=== PATIENT | male | born 1930 | race Caucasian/White ===

== ENCOUNTER → 2016-09-21 | Outpatient (CLI) | payer MEDICARE, BC ==
[~2016-09-21] MED LIST: AMOXICILLIN 8751 TAB; ASPIRIN 32325 MG/TAB PO; ASPIRIN 81M81 MG/TA2 PO; BETAPACE 80MG80 MG; CALCIUM 600600 MG PO; CELEXA 20MG20 MG/TAB PO; DOXYCYCLINE 10100 MG PO; ELIQUIS 5MG PO; ENBREL50 MG/ML SC; FOLIC ACID 11 MG/TA1 PO; LIPITOR20 MG PO; LOTENSIN HCT 201 TA1 PO; METHOTREXA2.5 MG/TAB; MULTIPLE VITAMI1 TA5 PO; NAPRELAN375 MG; NEXIUM 40MG40 MG PO; PRADAXA 150MG150 MG PO; PREDNISONE20 MG PO; RT SPIRIVA18 MCG IH; SINEMET 25/101 UDTAB PO; TESSALON P100 MG/CAP PO; TYLENOL 500MG500 MG
== END ==
LOC: COL.RAD 08:42
DX: M70.62 Trochanteric bursitis, left hip (principal)
CPT/HCPCS: J3301; Q9967

== ENCOUNTER 2016-12-28 08:30 | Outpatient (RCR) | payer MEDICARE, BC | END 2017-03-20 | disposition home or self-care (01) | LOC: WSST | DX: R13.10 Dysphagia, unspecified (principal); G20 Parkinson's disease | CPT/HCPCS: G8996-GN; G8997-GN ==

== ENCOUNTER → 2016-12-28 | Outpatient (CLI) | payer MEDICARE, BC | LOC: COL.RAD 08:30 | DX: R13.12 Dysphagia, oropharyngeal phase (principal) | CPT/HCPCS: G8996-GN; G8997-GN; G8998-GN ==

== ENCOUNTER 2017-08-01 13:33 | Emergency (ER) | payer MEDICARE, BC ==
[~2017-08-01] VITALS: Ht 188 cm; Wt 104.5 kg
[2017-08-01 17:06] LABS: COLLECTION METHOD CLEAN CATCH
[2017-08-01 17:14] LABS: MUCOUS Present /lpf; PH 5 (5-8); SQUAMOUS EPITHELIAL 0-2 /hpf; URINE APPEARANCE Clear; URINE BACTERIA Rare /hpf; URINE BILIRUBIN Negative (NEGATIVE); URINE BLOOD Negative (NEGATIVE); URINE COLOR Yellow; URINE GLUCOSE Negative (NEGATIVE); URINE KETONE Trace (NEGATIVE); URINE LEUKOCYTE ESTERASE Negative (NEGATIVE); URINE NITRATE Negative (NEGATIVE); URINE PROTEIN(semi-quant) Negative (NEGATIVE); URINE RBC 0-2 /hpf; URINE UROBILINOGEN Negative (NEGATIVE)
[2017-08-01 17:22] LABS: TRICYCLIC ANTIDEPRESS URINE NEGATIVE
[2017-08-01 17:29] LABS: BASO % 0.2 % (0.0-2.0); EOS # 0.1 (0.0-0.7); EOS % 0.8 % (0-4.0); GRAN # 4.8 (1.4-6.5); GRAN % 57.2 % (42.2-75.2); HEMOGLOBIN 12.9 g/dl (13.5-18.0); LYMPH # 2.5 (1.2-3.4); LYMPH % 29.6 % (20.0-51.0); MEAN CELL VOLUME 105 fl (80.0-100.0); MEAN CORPUSCULAR HEMOGLOBIN 35 pg (27.0-31.0); MEAN CORPUSCULAR HGB CONC 33 g/dl (33.0-37.0); MONO % 11.8 % (1.7-9.3); PLATELET COUNT 322 K/mm3 (130-400); REDCELL DISTRIBUTION WIDTH-CV 13.2 % (11.5-14.5)
[2017-08-01 17:45] LABS: ACETAMINOPHEN < 10 ug/mL (10-30); ALANINE AMINOTRANSFERASE 13 U/L (21-72); ALBUMIN 4.3 gm/dL (3.5-5.0); ALCOHOL(ethanol),MEDICAL < 10 mg/dL; ALKALINE PHOSPHATASE 56 U/L (50-136); ANION GAP 10 mmol/L (7-16); AST,SGOT 18 U/L (15-37); BLOOD UREA NITROGEN 23 mg/dL (9-20); CALCIUM 9.9 mg/dL (8.4-10.2); CARBON DIOXIDE 24 mmol/L (22-30); CHLORIDE 106 mmol/L (98-107); CREATININE, serum 1.25 mg/dL (0.66-1.25); GLUCOSE 103 mg/dL (74-106); POTASSIUM 4.8 mmol/L (3.4-5.0); SALICYLATE < 1.0 mg/dL; SODIUM 140 mmol/L (137-145); TOTAL PROTEIN 7.3 gm/dL (6.4-8.2)
[2017-08-02 00:54] VITALS: BP 117/56
[2017-08-02 02:23] VITALS: PULSE 68
== END 2017-08-02 02:24 ==
LOC: COL.ER 13:33
PROVIDERS: Emergency Medicine
DX: F32.9 Major depressive disorder, single episode, unspecified (principal); R45.851 Suicidal ideations; G20 Parkinson's disease

== ENCOUNTER 2017-08-24 08:09 | Day surgery (SDC) | payer MEDICARE, BC ==
[2017-08-24] VITALS (9 sets, daily range): BP systolic 106–179; BP diastolic 70–100; PULSE 59–75; TEMP 97.1–98
[~2017-08-24] VITALS: Ht 188.1 cm; Wt 113.1 kg
[2017-08-24] MEDS ORDERED: TYLENOL SU650 MG/SUP RC (08:46)
[2017-08-24] MEDS ORDERED: TYLENOL 500MG500 MG PO (08:47)
[2017-08-24] MEDS ORDERED: PROAIR HFA0.09 MG/AC IH (08:48)
[2017-08-24] MEDS ORDERED: ELIQUIS 5MG PO (08:48)
[2017-08-24] MEDS ORDERED: NATURAL C500 MG PO (08:49)
[2017-08-24] MEDS ORDERED: LIPITOR20 MG PO (08:50)
[2017-08-24] MEDS ORDERED: GENTLE LAXATIVE10 MG RC (08:51)
[2017-08-24] MEDS ORDERED: CIMZIA200 MG/ML IJ (08:53)
[2017-08-24] MEDS ORDERED: LEXAPRO20 MG PO (08:54)
[2017-08-24] MEDS ORDERED: FLEXERIL 1010 MG/TAB PO (08:54)
[2017-08-24] MEDS ORDERED: IMODIUM 2MG CAPS2 MG PO (08:55)
[2017-08-24] MEDS ORDERED: MILK OF MA400 MG/52 (08:56)
[2017-08-24] MEDS ORDERED: ZESTRIL 10MG10 MG PO (08:56)
[2017-08-24 08:58] LABS: MEAN CELL VOLUME 106 fl (80.0-100.0); MEAN CORPUSCULAR HGB CONC 33 g/dl (33.0-37.0); MEAN PLATELET VOLUME 9.4 fl (7.4-10.4); PLATELET COUNT 266 K/mm3 (130-400); RED BLOOD COUNT 3.09 M/mm3 (4.20-5.60); REDCELL DISTRIBUTION WIDTH-CV 13.9 % (11.5-14.5)
[2017-08-24] MEDS ORDERED: ALMACONE 360 M360 ML PO (08:58)
[2017-08-24] MEDS ORDERED: NITROSTAT0.4 MG/TAB SL (08:59)
[2017-08-24 09:00] LABS: HEMATOCRIT 32.6 % (42.0-52.0); HEMOGLOBIN 10.7 g/dl (13.5-18.0); MEAN CORPUSCULAR HEMOGLOBIN 35 pg (27.0-31.0)
[2017-08-24] MEDS ORDERED: TYLENOL 325MG325 MG PO (09:00)
[2017-08-24] MEDS ORDERED: BETAPACE 80MG80 MG PO (09:00)
[2017-08-24 09:03] LABS: PROTHROMBIN TIME 23.1 SECONDS (9.7-12.8)
[2017-08-24 09:10] LABS: CALCIUM 9.2 mg/dL (8.4-10.2); CREATININE, serum 1.04 mg/dL (0.66-1.25); POTASSIUM 3.6 mmol/L (3.4-5.0)
[2017-08-24] MEDS ORDERED: RT SPIRIVA18 MCG IH (09:16)
[2017-08-24] MEDS ORDERED: RAZADYNE8 MG PO (09:21)
[2017-08-24] MEDS ORDERED: BETAPACE 120MG120 MG PO (09:51)
== END 2017-08-24 11:03 | disposition home or self-care (01) ==
LOC: COL.CAR 08:09
PROVIDERS: Internal Medicine Cardiovascular Disease
DX: I48.0 Paroxysmal atrial fibrillation (principal); I48.91 Unspecified atrial fibrillation; Z95.0 Presence of cardiac pacemaker; Z79.01 Long term (current) use of anticoagulants; I11.0 Hypertensive heart disease with heart failure; I50.32 Chronic diastolic (congestive) heart failure; G45.1 Carotid artery syndrome (hemispheric); J44.9 Chronic obstructive pulmonary disease, unspecified; E78.5 Hyperlipidemia, unspecified; K21.9 Gastro-esophageal reflux disease without esophagitis; M06.9 Rheumatoid arthritis, unspecified; Z86.73 Personal history of transient ischemic attack (TIA), and cerebral infarction without residual deficits; M62.81 Muscle weakness (generalized); I25.10 Atherosclerotic heart disease of native coronary artery without angina pectoris; F32.9 Major depressive disorder, single episode, unspecified; G20 Parkinson's disease; I49.5 Sick sinus syndrome; Z80.9 Family history of malignant neoplasm, unspecified; Z82.3 Family history of stroke; Z87.891 Personal history of nicotine dependence
CPT/HCPCS: J2704; J7120

== ENCOUNTER 2017-08-25 02:04 | Emergency (ER) | payer MEDICARE, BC ==
[~2017-08-25] VITALS: Ht 188 cm; Wt 109.1 kg
[~2017-08-25 02:04] MED LIST changes: +ALMACONE 360 M360 ML PO; +BETAPACE 120MG120 MG PO; +BETAPACE 80MG80 MG PO; +CIMZIA200 MG/ML IJ; +FLEXERIL 1010 MG/TAB PO; +GENTLE LAXATIVE10 MG RC; +IMODIUM 2MG CAPS2 MG PO; +LEXAPRO20 MG PO; +MILK OF MA400 MG/52; +NATURAL C500 MG PO; +NITROSTAT0.4 MG/TAB SL; +PROAIR HFA0.09 MG/AC IH; +RAZADYNE8 MG PO; +TYLENOL 325MG325 MG PO; +TYLENOL 500MG500 MG PO; +TYLENOL SU650 MG/SUP RC; +ZESTRIL 10MG10 MG PO
[2017-08-25 02:09] VITALS: TEMP 98.2
[2017-08-25 02:35] LABS: MEAN CELL VOLUME 106 fl (80.0-100.0); MEAN CORPUSCULAR HGB CONC 32 g/dl (33.0-37.0); MEAN PLATELET VOLUME 11.1 fl (7.4-10.4); PLATELET COUNT 250 K/mm3 (130-400); RED BLOOD COUNT 3.28 M/mm3 (4.20-5.60)
[2017-08-25 02:37] LABS: HEMATOCRIT 34.9 % (42.0-52.0); HEMOGLOBIN 11.3 g/dl (13.5-18.0); MEAN CORPUSCULAR HEMOGLOBIN 34 pg (27.0-31.0)
[2017-08-25 02:48] LABS: ALBUMIN 3.9 gm/dL (3.5-5.0); BILIRUBIN,TOTAL 0.8 mg/dL (0.0-1.0); C-REACTIVE PROTEIN 4.8 mg/dL (0.0-0.9); CREATININE, serum 1.08 mg/dL (0.66-1.25); POTASSIUM 3.7 mmol/L (3.4-5.0); TOTAL PROTEIN 7.1 gm/dL (6.4-8.2)
[2017-08-25 02:53] LABS: BAND 6 % (0-10); EOSINOPHIL 1 % (0-4); LYMPHOCYTE 9 % (20.0-51.0); NEUTROPHILS 65 % (42.0-75.2); PLATELET ESTIMATE NORMAL (NORMAL)
[2017-08-25 02:58] LABS: TROPONIN-I 0.04 ng/mL (0.000-0.034)
[2017-08-25 05:00] VITALS: BP 159/101; PULSE 82
== END 2017-08-25 05:00 | disposition short-term general hospital (02) ==
LOC: COL.ER 02:04
PROVIDERS: Emergency Medicine
DX: I11.0 Hypertensive heart disease with heart failure (principal); I50.9 Heart failure, unspecified; I48.91 Unspecified atrial fibrillation; I25.10 Atherosclerotic heart disease of native coronary artery without angina pectoris; J44.9 Chronic obstructive pulmonary disease, unspecified; Z95.0 Presence of cardiac pacemaker; Z95.5 Presence of coronary angioplasty implant and graft; Z79.01 Long term (current) use of anticoagulants
CPT/HCPCS: J1940

== ENCOUNTER → 2017-09-04 | Outpatient (REF) ==
[2017-09-04 09:19] LABS: CALCIUM 8.7 mg/dL (8.4-10.2); CREATININE, serum 1.16 mg/dL (0.66-1.25)
== END ==
LOC: ZCOL.LAB 08:48
PROVIDERS: Internal Medicine
DX: E87.6 Hypokalemia (principal)

== ENCOUNTER 2017-11-09 09:49 | Day surgery (SDC) | payer MEDICARE, BC ==
[~2017-11-09] VITALS: Ht 188 cm; Wt 102.2 kg
[2017-11-09 10:30] VITALS: BP 114/69; PULSE 81; TEMP 97.7
[2017-11-09] MEDS ORDERED: TYLENOL SU650 MG/SUP RC (11:16)
[2017-11-09] MEDS ORDERED: ELIQUIS 5MG PO (11:17)
[2017-11-09] MEDS ORDERED: VITAMIN C500 MG PO (11:18)
[2017-11-09] MEDS ORDERED: LIPITOR20 MG PO (11:18)
[2017-11-09] MEDS ORDERED: DULCOLAX S10 MG/SUPP RC (11:19)
[2017-11-09] MEDS ORDERED: SINEMET-25/251 UDTAB PO ×4 (11:19→11:21)
[2017-11-09] MEDS ORDERED: FLEXERIL 1010 MG/TAB PO (11:22)
[2017-11-09] MEDS ORDERED: LEXAPRO 10MG10 MG PO (11:23)
[2017-11-09] MEDS ORDERED: FOLIC ACID 11 MG/TA1 PO (11:23)
[2017-11-09] MEDS ORDERED: LASIX 40MG TABL40 MG PO (11:24)
[2017-11-09] MEDS ORDERED: RAZADYNE8 MG PO (11:25)
[2017-11-09] MEDS ORDERED: IMODIUM A-D2 MG PO (11:26)
[2017-11-09] MEDS ORDERED: PRINIVIL40 MG PO (11:28)
[2017-11-09] MEDS ORDERED: METHOTREXA2.5 MG/TAB PO (11:31)
[2017-11-09] MEDS ORDERED: MULTIPLE VITAMI1 CAP PO (11:32)
[2017-11-09] MEDS ORDERED: MILK OF MA400 MG/52 PO (11:32)
[2017-11-09] MEDS ORDERED: ALMACONE 360 M360 ML PO (11:33)
[2017-11-09] MEDS ORDERED: NEXIUM 40MG40 MG PO (11:34)
[2017-11-09] MEDS ORDERED: NITROSTAT0.4 MG/TAB SL (11:35)
[2017-11-09] MEDS ORDERED: PRILOSEC 20MG20 MG PO (11:35)
[2017-11-09] MEDS ORDERED: ROLAIDS 675 MG-1 CT2 PO (11:37)
[2017-11-09] MEDS ORDERED: PROAIR HFA0.09 MG/AC IH (11:37)
[2017-11-09] MEDS ORDERED: BETAPACE 120MG120 MG PO (11:38)
[2017-11-09] MEDS ORDERED: ALDACTONE 25MG25 M1 PO (11:42)
[2017-11-09] MEDS ORDERED: RT SPIRIVA18 MCG IH (11:43)
[2017-11-09] MEDS ORDERED: TYLENOL 500MG500 MG PO (11:44)
[2017-11-09] MEDS ORDERED: TYLENOL 325MG325 MG PO (11:54)
[2017-11-09 12:55] VITALS: BP 85/56; PULSE 76
[2017-11-09 13:10] VITALS: BP 112/73; PULSE 76
[2017-11-09 13:25] VITALS: BP 121/76; PULSE 69
== END 2017-11-09 13:30 ==
LOC: SDCO 09:49
DX: K22.70 Barrett's esophagus without dysplasia (principal); K21.9 Gastro-esophageal reflux disease without esophagitis; K44.9 Diaphragmatic hernia without obstruction or gangrene; K22.2 Esophageal obstruction; J44.9 Chronic obstructive pulmonary disease, unspecified; I11.0 Hypertensive heart disease with heart failure; I50.32 Chronic diastolic (congestive) heart failure; I25.10 Atherosclerotic heart disease of native coronary artery without angina pectoris; G20 Parkinson's disease; I69.854 Hemiplegia and hemiparesis following other cerebrovascular disease affecting left non-dominant side; I69.892 Facial weakness following other cerebrovascular disease; I69.828 Other speech and language deficits following other cerebrovascular disease; I48.91 Unspecified atrial fibrillation; F32.9 Major depressive disorder, single episode, unspecified; F41.9 Anxiety disorder, unspecified; M19.90 Unspecified osteoarthritis, unspecified site; E78.00 Pure hypercholesterolemia, unspecified; D64.9 Anemia, unspecified; K57.92 Diverticulitis of intestine, part unspecified, without perforation or abscess without bleeding; Z95.0 Presence of cardiac pacemaker; Z79.82 Long term (current) use of aspirin; Z79.01 Long term (current) use of anticoagulants
CPT/HCPCS: J2704

== ENCOUNTER 2018-07-14 17:17 | Inpatient (IN) | payer MEDICARE, BC ==
[2018-07-14] VITALS (104 sets, daily range): BP systolic 133; BP diastolic 91; PULSE 74; TEMP 98.7; O2SAT 94–100
[~2018-07-14] VITALS: Ht 188 cm; Wt 108.6 kg
[~2018-07-14 17:17] MED LIST changes: +ALDACTONE 25MG25 M1 PO; +DULCOLAX S10 MG/SUPP RC; +IMODIUM A-D2 MG PO; +LASIX 40MG TABL40 MG PO; +LEXAPRO 10MG10 MG PO; +METHOTREXA2.5 MG/TAB PO; +MILK OF MA400 MG/52 PO; +MULTIPLE VITAMI1 CAP PO; +PRILOSEC 20MG20 MG PO; +PRINIVIL40 MG PO; +ROLAIDS 675 MG-1 CT2 PO; +SINEMET-25/251 UDTAB PO; +VITAMIN C500 MG PO
[2018-07-14 17:38] LABS: HEMOGLOBIN 11.6 g/dl (13.5-18.0); MEAN CELL VOLUME 104 fl (80.0-100.0); MEAN CORPUSCULAR HEMOGLOBIN 33 pg (27.0-31.0); MEAN CORPUSCULAR HGB CONC 32 g/dl (33.0-37.0); MEAN PLATELET VOLUME 9.7 fl (7.4-10.4); PLATELET COUNT 409 K/mm3 (130-400); REDCELL DISTRIBUTION WIDTH-CV 13.5 % (11.5-14.5)
[2018-07-14 17:39] LABS: HEMATOCRIT 36.3 % (42.0-52.0)
[2018-07-14 17:43] LABS: INR 1.7 (0.8-3.0); PROTHROMBIN TIME 18.8 SECONDS (9.7-12.8)
[2018-07-14 17:46] LABS: PARTIAL THROMBOPLASTIN TIME 35.5 SECONDS (26.0-37.0)
[2018-07-14 17:49] LABS: ALBUMIN 4.3 gm/dL (3.5-5.0); BILIRUBIN,TOTAL 0.5 mg/dL (0.0-1.0); CALCIUM 9.3 mg/dL (8.4-10.2); CREATININE, serum 1.71 mg/dL (0.66-1.25); POTASSIUM 4.3 mmol/L (3.4-5.0); TOTAL PROTEIN 8.2 gm/dL (6.4-8.2)
[2018-07-14 18:00] LABS: TROPONIN-I 0.014 ng/mL (0.000-0.034)
[2018-07-14 20:31] LABS: BAND 4 % (0-10); BASOPHIL 1 % (0-2); LYMPHOCYTE 14 % (20.0-51.0); NEUTROPHILS 69 % (42.0-75.2); PLATELET ESTIMATE INCREASED (NORMAL)
[2018-07-14 21:10] LABS: COLLECTION METHOD CLEAN CATCH
[2018-07-14 21:16] LABS: PH 5 (5-8); SQUAMOUS EPITHELIAL 0-2 /hpf; URINE APPEARANCE Clear; URINE BACTERIA None Seen /hpf; URINE BILIRUBIN Negative (NEGATIVE); URINE BLOOD Negative (NEGATIVE); URINE COLOR Yellow; URINE GLUCOSE Negative (NEGATIVE); URINE KETONE Trace (NEGATIVE); URINE LEUKOCYTE ESTERASE Negative (NEGATIVE); URINE NITRATE Negative (NEGATIVE); URINE PROTEIN(semi-quant) Negative (NEGATIVE); URINE RBC 0-2 /hpf; URINE UROBILINOGEN Negative (NEGATIVE)
[2018-07-15] VITALS (461 sets, daily range): BP systolic 120–144; BP diastolic 64–85; PULSE 69–77; TEMP 97.6–98.6; O2SAT 92–100
[2018-07-15 04:13] LABS: HEMOGLOBIN 10.3 g/dl (13.5-18.0); MEAN CELL VOLUME 102 fl (80.0-100.0); MEAN CORPUSCULAR HEMOGLOBIN 33 pg (27.0-31.0); MEAN CORPUSCULAR HGB CONC 32 g/dl (33.0-37.0); MEAN PLATELET VOLUME 9.4 fl (7.4-10.4); PLATELET COUNT 380 K/mm3 (130-400); RED BLOOD COUNT 3.11 M/mm3 (4.20-5.60); REDCELL DISTRIBUTION WIDTH-CV 13.6 % (11.5-14.5)
[2018-07-15 04:16] LABS: HEMATOCRIT 31.8 % (42.0-52.0)
[2018-07-15 04:23] LABS: CALCIUM 8.7 mg/dL (8.4-10.2); CREATININE, serum 1.48 mg/dL (0.66-1.25); MAGNESIUM 1.1 mg/dL (1.6-2.3); POTASSIUM 4.5 mmol/L (3.4-5.0)
[2018-07-15 04:34] LABS: BAND 1 % (0-10); BASOPHIL 1 % (0-2); LYMPHOCYTE 11 % (20.0-51.0); NEUTROPHILS 74 % (42.0-75.2)
[2018-07-15 04:35] LABS: HYPOCHROMIA 1+; PLATELET ESTIMATE NORMAL (NORMAL)
[2018-07-15 04:36] LABS: TROPONIN-I 0.022 ng/mL (0.000-0.034)
[2018-07-15 04:37] LABS: SCHISTOCYTES 1+
[2018-07-15 04:53] LABS: TSH w REFLEX 1.56 uIU/mL (0.465-4.680)
== END 2018-07-15 13:54 | DRG 303 ==
LOC: COL.ER 17:17 → ICU 18:58
PROVIDERS: Family Medicine; Internal Medicine
DX: I25.110 Atherosclerotic heart disease of native coronary artery with unstable angina pectoris (principal); N17.9 Acute kidney failure, unspecified; I13.0 Hypertensive heart and chronic kidney disease with heart failure and stage 1 through stage 4 chronic kidney disease, or unspecified chronic kidney disease; I50.32 Chronic diastolic (congestive) heart failure; Z66 Do not resuscitate; N18.9 Chronic kidney disease, unspecified; I25.10 Atherosclerotic heart disease of native coronary artery without angina pectoris; I48.91 Unspecified atrial fibrillation; J44.9 Chronic obstructive pulmonary disease, unspecified; Z95.5 Presence of coronary angioplasty implant and graft; Z95.0 Presence of cardiac pacemaker; Z79.01 Long term (current) use of anticoagulants; M06.9 Rheumatoid arthritis, unspecified; Z87.891 Personal history of nicotine dependence
CPT/HCPCS: 99223-AI; 99239; J3475; J7030

== ENCOUNTER 2018-07-17 03:58 | Emergency (ER) | payer MEDICARE, BC ==
[~2018-07-17] VITALS: Ht 188 cm; Wt 109.1 kg
[2018-07-17 03:59] VITALS: TEMP 97
[2018-07-17 04:42] LABS: MEAN CELL VOLUME 103 fl (80.0-100.0); MEAN CORPUSCULAR HEMOGLOBIN 33 pg (27.0-31.0); MEAN CORPUSCULAR HGB CONC 33 g/dl (33.0-37.0); PLATELET COUNT 352 K/mm3 (130-400); RED BLOOD COUNT 2.99 M/mm3 (4.20-5.60); REDCELL DISTRIBUTION WIDTH-CV 13.7 % (11.5-14.5)
[2018-07-17 04:49] LABS: INR 1.8 (0.8-3.0); PROTHROMBIN TIME 20.2 SECONDS (9.7-12.8)
[2018-07-17 04:54] LABS: ALBUMIN 3.8 gm/dL (3.5-5.0); BILIRUBIN,TOTAL 0.4 mg/dL (0.0-1.0); CALCIUM 9.2 mg/dL (8.4-10.2); CREATININE, serum 1.41 mg/dL (0.66-1.25); POTASSIUM 4.6 mmol/L (3.4-5.0); TOTAL PROTEIN 7.3 gm/dL (6.4-8.2)
[2018-07-17 05:03] LABS: TROPONIN-I 0.021 ng/mL (0.000-0.034)
[2018-07-17 05:05] LABS: HEMATOCRIT 30.8 % (42.0-52.0)
[2018-07-17 06:00] VITALS: BP 147/85; PULSE 71
[2018-07-17 06:17] LABS: BAND 2 % (0-10); EOSINOPHIL 2 % (0-4); LYMPHOCYTE 10 % (20.0-51.0); NEUTROPHILS 76 % (42.0-75.2); PLATELET ESTIMATE NORMAL (NORMAL)
== END 2018-07-17 06:03 | disposition home or self-care (01) ==
LOC: COL.ER 03:58
PROVIDERS: Emergency Medicine
DX: J44.1 Chronic obstructive pulmonary disease with (acute) exacerbation (principal); I48.91 Unspecified atrial fibrillation; N18.9 Chronic kidney disease, unspecified; M06.9 Rheumatoid arthritis, unspecified; F41.9 Anxiety disorder, unspecified; G20 Parkinson's disease; Z79.899 Other long term (current) drug therapy; Z95.0 Presence of cardiac pacemaker; Z95.5 Presence of coronary angioplasty implant and graft
CPT/HCPCS: J2270

== ENCOUNTER → 2018-07-25 | Outpatient (CLI) | payer MEDICARE, BC ==
[2018-07-25 12:21] LABS: CALCIUM 8.8 mg/dL (8.4-10.2); CREATININE, serum 1.3 mg/dL (0.66-1.25); POTASSIUM 4.5 mmol/L (3.4-5.0)
[2018-07-25 12:22] LABS: BASO % 0.3 % (0.0-2.0); EOS # 0.1 (0.0-0.7); EOS % 0.7 % (0-4.0); GRAN # 9.4 (1.4-6.5); GRAN % 77.4 % (42.2-75.2); HEMOGLOBIN 10.8 g/dl (13.5-18.0); LYMPH # 1.4 (1.2-3.4); LYMPH % 11.7 % (20.0-51.0); MEAN CELL VOLUME 104 fl (80.0-100.0); MEAN CORPUSCULAR HEMOGLOBIN 33 pg (27.0-31.0); MEAN CORPUSCULAR HGB CONC 31 g/dl (33.0-37.0); MEAN PLATELET VOLUME 9.8 fl (7.4-10.4); MONO # 1.1 (0.1-0.6); MONO % 9.2 % (1.7-9.3); PLATELET COUNT 424 K/mm3 (130-400); RED BLOOD COUNT 3.32 M/mm3 (4.20-5.60); REDCELL DISTRIBUTION WIDTH-CV 13.9 % (11.5-14.5)
[2018-07-25 12:28] LABS: HEMATOCRIT 34.6 % (42.0-52.0)
== END ==
LOC: ZCOL.LAB 11:40
PROVIDERS: Internal Medicine
DX: J96.00 Acute respiratory failure, unspecified whether with hypoxia or hypercapnia (principal)

== ENCOUNTER → 2020-03-26 | Outpatient (CLI) | payer MEDICARE, BC ==
[~2020-03-26] MED LIST changes: +BETAPACEAF120 PO; +LASIX 20MG TABL20 MG PO; +PERIDEX (CHLOR480 ML MM; +ZOFRAN 4MG T4 MG/TAB PO
[2020-03-26 19:41] LABS: BASO % 0.4 % (0.0-2.0); EOS # 0.1 (0.0-0.7); EOS % 1.3 % (0-4.0); GRAN # 5.7 (1.4-6.5); GRAN % 68.4 % (42.2-75.2); HEMOGLOBIN 11.3 g/dl (13.5-18.0); LYMPH # 1.6 (1.2-3.4); LYMPH % 19.5 % (20.0-51.0); MEAN CELL VOLUME 105 fl (80.0-100.0); MEAN CORPUSCULAR HEMOGLOBIN 34 pg (27.0-31.0); MEAN CORPUSCULAR HGB CONC 32 g/dl (33.0-37.0); MEAN PLATELET VOLUME 10.2 fl (7.4-10.4); MONO # 0.9 (0.1-0.6); MONO % 10.2 % (1.7-9.3); PLATELET COUNT 245 K/mm3 (130-400); RED BLOOD COUNT 3.37 M/mm3 (4.20-5.60); REDCELL DISTRIBUTION WIDTH-CV 13.9 % (11.5-14.5)
[2020-03-26 19:47] LABS: ALBUMIN 3.5 gm/dL (3.5-5.0); BILIRUBIN,TOTAL 0.7 mg/dL (0.0-1.0); CALCIUM 8.4 mg/dL (8.4-10.2); CREATININE, serum 1.2 (0.66-1.25); POTASSIUM 3.6 mmol/L (3.4-5.0); TOTAL PROTEIN 6.2 gm/dL (6.4-8.2)
[2020-03-26 19:50] LABS: HEMATOCRIT 35.3 % (42.0-52.0)
== END ==
LOC: ZCOL.LAB 19:13
PROVIDERS: Nurse Practitioner Family
DX: I50.32 Chronic diastolic (congestive) heart failure (principal); Z20.828 Contact with and (suspected) exposure to other viral communicable diseases

== ENCOUNTER 2020-04-08 08:47 | Day surgery (SDC) | payer MEDICARE, BC ==
[~2020-04-08] VITALS: Ht 188 cm; Wt 117.0 kg
[2020-04-08 09:19] VITALS: BP 157/92; PULSE 75; TEMP 97.9
[2020-04-08] MEDS ORDERED: CIMZIA200 MG/ML SQ (09:43)
[2020-04-08] MEDS ORDERED: ROLAIDS 675 MG-1 CT2 PO (09:44)
[2020-04-08] MEDS ORDERED: ASPERCREME85G TP (09:46)
[2020-04-08 09:50] LABS: HEMATOCRIT 40.2 % (42.0-52.0); MEAN CELL VOLUME 105 fl (80.0-100.0); MEAN CORPUSCULAR HEMOGLOBIN 34 pg (27.0-31.0); MEAN CORPUSCULAR HGB CONC 32 g/dl (33.0-37.0); MEAN PLATELET VOLUME 9.8 fl (7.4-10.4); PLATELET COUNT 298 K/mm3 (130-400); RED BLOOD COUNT 3.84 M/mm3 (4.20-5.60); REDCELL DISTRIBUTION WIDTH-CV 13.6 % (11.5-14.5)
[2020-04-08 09:56] LABS: INR 1.3 (0.8-3.0); PROTHROMBIN TIME 14.3 SECONDS (9.7-12.8)
[2020-04-08] MEDS ORDERED: SINEMET-25/251 UDTAB PO (09:57)
[2020-04-08 09:58] LABS: PARTIAL THROMBOPLASTIN TIME 35.1 SECONDS (26.0-37.0)
[2020-04-08] MEDS ORDERED: ATHLETE'S FOOT1% TP (09:58)
[2020-04-08] MEDS ORDERED: RAZADYNE ER16 MG PO (10:00)
[2020-04-08] MEDS ORDERED: LASIX 40MG TABL40 MG PO (10:00)
[2020-04-08 10:10] LABS: CREATININE, serum 1.36 (0.66-1.25); MAGNESIUM 1.2 mg/dL (1.6-2.3); POTASSIUM 4.3 mmol/L (3.4-5.0)
[2020-04-08] MEDS ORDERED: ATROVENT I0.2 MG/1 M IH (10:10)
[2020-04-08] MEDS ORDERED: ALMACONE 360 M360 ML PO (10:12)
[2020-04-08] MEDS ORDERED: NYSTATIN POWDER30 GM TOP (10:18)
[2020-04-08] MEDS ORDERED: PERIDEX (CHLOR480 ML MM (10:19)
[2020-04-08] MEDS ORDERED: K-DUR20 MEQ PO (10:20)
[2020-04-08] MEDS ORDERED: PRILOSEC 20MG20 MG PO (10:21)
[2020-04-08] MEDS ORDERED: PROAIR HFA0.09 MG/AC IH (10:22)
[2020-04-08] MEDS ORDERED: BETAPACE 80MG80 MG PO (10:23)
[2020-04-08] MEDS ORDERED: ZOFRAN ODT4 MG PO (10:25)
[2020-04-08 10:40] LABS: THYROID STIMULATING HORMONE 3.35 uIU/mL (0.465-4.680)
--- NOTE | 2020-04-08 13:24 | NUR ---
Pt escorted out to waiting room to wait with son for [facility] van, who should be arriving within 10 mins. DC instructions were reviewed with pt and son. Both express understanding. Nurse Scott at [facility] was updated that pt would be returning to their facility and that cardioversion was not required today.
== END 2020-04-08 13:26 ==
LOC: COL.CAR 08:47
PROVIDERS: Internal Medicine Cardiovascular Disease
DX: I48.92 Unspecified atrial flutter (principal); I48.91 Unspecified atrial fibrillation; I11.0 Hypertensive heart disease with heart failure; I50.9 Heart failure, unspecified; I25.10 Atherosclerotic heart disease of native coronary artery without angina pectoris; J44.9 Chronic obstructive pulmonary disease, unspecified; K21.9 Gastro-esophageal reflux disease without esophagitis; E78.5 Hyperlipidemia, unspecified; G20 Parkinson's disease; M06.9 Rheumatoid arthritis, unspecified; I49.5 Sick sinus syndrome; Z95.0 Presence of cardiac pacemaker; Z98.61 Coronary angioplasty status

== ENCOUNTER 2021-03-23 14:57 | Inpatient (IN) | payer MEDICARE, BC ==
[~2021-03-23] VITALS: Ht 188 cm; Wt 112.0 kg
[~2021-03-23 14:57] MED LIST changes: +ASPERCREME85G TP; +ATHLETE'S FOOT1% TP; +ATROVENT I0.2 MG/1 M IH; +CIMZIA200 MG/ML SQ; +K-DUR20 MEQ PO; +NYSTATIN POWDER30 GM TOP; +RAZADYNE ER16 MG PO; +ZOFRAN ODT4 MG PO
[2021-03-23 15:31] LABS: HEMATOCRIT 40.4 % (42.0-52.0); HEMOGLOBIN 13.3 g/dl (13.5-18.0); MEAN CELL VOLUME 105 fl (80.0-100.0); MEAN CORPUSCULAR HEMOGLOBIN 35 pg (27.0-31.0); MEAN CORPUSCULAR HGB CONC 33 g/dl (33.0-37.0); MEAN PLATELET VOLUME 9.7 fl (7.4-10.4); PLATELET COUNT 322 K/mm3 (130-400); RED BLOOD COUNT 3.85 M/mm3 (4.20-5.60)
[2021-03-23 15:34] LABS: ALBUMIN 4.4 gm/dL (3.5-5.0); BILIRUBIN,TOTAL 0.7 mg/dL (0.0-1.0); CREATININE, serum 1.42 (0.66-1.25); POTASSIUM 4.6 mmol/L (3.4-5.0); TOTAL PROTEIN 8.7 gm/dL (6.4-8.2)
[2021-03-23 15:34] LABS: COLLECTION METHOD IN
[2021-03-23 15:46] LABS: TROPONIN-I 0.02 ng/mL (0.000-0.035)
[2021-03-23 15:54] LABS: MUCOUS Present /lpf; PH 5 (5-8); SQUAMOUS EPITHELIAL 0-2 /hpf; URINE APPEARANCE Clear; URINE BACTERIA None Seen /hpf; URINE BILIRUBIN Negative (NEGATIVE); URINE BLOOD Negative (NEGATIVE); URINE COLOR Yellow; URINE GLUCOSE Negative (NEGATIVE); URINE KETONE Trace (NEGATIVE); URINE LEUKOCYTE ESTERASE Negative (NEGATIVE); URINE NITRATE Negative (NEGATIVE); URINE PROTEIN(semi-quant) 1+ (NEGATIVE); URINE UROBILINOGEN Negative (NEGATIVE)
[2021-03-23 15:58] LABS: INR 1.7 (0.8-3.0)
[2021-03-23 16:01] LABS: PARTIAL THROMBOPLASTIN TIME 32.3 SECONDS (26.0-37.0)
[2021-03-23 16:50] LABS: BAND 1 % (0-10)
[2021-03-23 17:04] LABS: LYMPHOCYTE 18 % (20.0-51.0); NEUTROPHILS 75 % (42.0-75.2)
[2021-03-23 17:05] LABS: PLATELET ESTIMATE DECREASED (NORMAL)
[2021-03-23 17:06] LABS: OVALOCYTES 1+; SCHISTOCYTES 1+; SPHEROCYTE 1+
--- NOTE | 2021-03-23 22:50 | NUR ---
Patient to medical room 318 at this time. Patient is alert, slightly drowsy and partially oriented. He is mostly confused. He complains of pain in abdomen; bowel sounds audible in all quadrants, but are hypoactive in LLQ. Indwelling mayfield is in place and draining well. Redness is noted on coccyx and is blanchable. Excoriated skin is noted in skin folds around groin and Desenex pwder is applied. Patient has occassional cough with PO intake; PO meds administered crushed with apple sauce. Patient on 4 liters 02 and all lung clay have audible coarse crackles. No increased work of breathing is noted. Patient is poor historian so admission paperwork is filled out via physician's h&p. call light in reach, will continue to monitor.
[2021-03-23 22:59] LABS: MAGNESIUM 1.2 mg/dL (1.6-2.3); POTASSIUM 4.5 mmol/L (3.4-5.0)
[2021-03-23 23:00] VITALS: BP 149/76; PULSE 85; TEMP 98.3
[2021-03-23] MEDS ORDERED: IPRATROPIUM BROM3 M1 IH (23:06)
[2021-03-23] MEDS ORDERED: BETAPACE 120MG120 MG PO (23:22)
[2021-03-23] MEDS ORDERED: AMOXICILLIN 8751 TAB PO (23:31)
[2021-03-23] MEDS ORDERED: MYLANTA 150 ML150 M1 PO (23:32)
--- NOTE | 2021-03-24 01:30 | NUR ---
Vancomycin Initial Dosing Pharmacy Note Ordering provider: Saran Jimenez MD Indication/duration: PNA w/ hx of MRSA Relevant comorbidities: HTN, HFpEF, CKD LABS: WBC = 14.0, SCr = 1.42 Recommendation: Will draw troughs and follow levels. Loading dose: 1.75 grams Maintenance dose: 1.5 grams every 24 hours Trough goal: 15-20 ug/mL
[2021-03-24 04:26] VITALS: BP 128/74; PULSE 101; TEMP 98.3
[2021-03-24 06:19] LABS: BASO % 0.2 % (0.0-2.0); GRAN # 12.8 (1.4-6.5); GRAN % 86.3 % (42.2-75.2); HEMATOCRIT 38.2 % (42.0-52.0); HEMOGLOBIN 12.4 g/dl (13.5-18.0); LYMPH # 1.2 (1.2-3.4); MEAN CELL VOLUME 105 fl (80.0-100.0); MEAN CORPUSCULAR HEMOGLOBIN 34 pg (27.0-31.0); MEAN CORPUSCULAR HGB CONC 33 g/dl (33.0-37.0); MEAN PLATELET VOLUME 10.1 fl (7.4-10.4); MONO # 0.7 (0.1-0.6); MONO % 4.8 % (1.7-9.3); PLATELET COUNT 285 K/mm3 (130-400); RED BLOOD COUNT 3.63 M/mm3 (4.20-5.60)
[2021-03-24 08:06] VITALS: BP 129/77; PULSE 81; TEMP 98.1
[2021-03-24 08:21] LABS: PATHOLOGY DIFF REVIEW OK
[2021-03-24 13:00] VITALS: BP 133/75; PULSE 102; TEMP 97.8
[2021-03-24 16:55] VITALS: BP 123/67; PULSE 80; TEMP 98.2
[2021-03-25] VITALS: BP 109/70; PULSE 82; TEMP 98.2
[2021-03-25 04:00] VITALS: BP 116/82; PULSE 54; TEMP 98.6
[2021-03-25 07:51] VITALS: BP 137/88; PULSE 81; TEMP 97.9
[2021-03-25 07:51] LABS: CREATININE, serum 1.52 (0.66-1.25); MAGNESIUM 2.1 mg/dL (1.6-2.3); POTASSIUM 4.4 mmol/L (3.4-5.0)
[2021-03-25 08:14] LABS: HEMOGLOBIN 11.3 g/dl (13.5-18.0); MEAN CELL VOLUME 108 fl (80.0-100.0); MEAN CORPUSCULAR HEMOGLOBIN 34 pg (27.0-31.0); MEAN CORPUSCULAR HGB CONC 32 g/dl (33.0-37.0); MEAN PLATELET VOLUME 10.4 fl (7.4-10.4); PLATELET COUNT 329 K/mm3 (130-400); RED BLOOD COUNT 3.32 M/mm3 (4.20-5.60); REDCELL DISTRIBUTION WIDTH-CV 14.1 % (11.5-14.5)
[2021-03-25 08:36] LABS: HEMATOCRIT 35.9 % (42.0-52.0)
[2021-03-25 09:31] LABS: LYMPHOCYTE 10 % (20.0-51.0); NEUTROPHILS 85 % (42.0-75.2); PLATELET ESTIMATE NORMAL (NORMAL)
[2021-03-25 09:32] LABS: SPHEROCYTE 1+
[2021-03-25 09:34] LABS: ANISOCYTOSIS 1+
[2021-03-25 12:15] VITALS: BP 132/72; PULSE 84; TEMP 98.2
--- NOTE | 2021-03-25 12:49 | NUR ---
IVY confirmed with Ignacia at [facility] that the patient resides at [facility] in long-term care in [facility]. IVY contacted the patient's son, Ravinder (ph#[phone]), to discuss discharge plan. Ravinder confirms that the plan is for the patient to return back to [facility] upon discharge. The patient's PCP is Dr. Abundio Tavera and his DPOA-HC is in EMR. It designate Ravinder, his late (Dory), and his two daughters: Nimisha Rivas and Abbi Woods. IVY faxed updates to Ignacia at [facility]. IVY to continue to follow. *Discharge plan: [facility] long-term care/SNF*
[2021-03-25 16:13] VITALS: BP 150/87; PULSE 83; TEMP 98.4
[2021-03-25 20:00] VITALS: BP 135/87; PULSE 83; TEMP 98.1
[2021-03-26 04:18] VITALS: BP 127/86; PULSE 108; TEMP 98.8
[2021-03-26 07:21] VITALS: BP 150/93; PULSE 82; TEMP 97.9
[2021-03-26 11:35] VITALS: BP 150/87; PULSE 84; TEMP 98.4
[2021-03-26 17:22] VITALS: BP 144/83; PULSE 82; TEMP 97.9
[2021-03-26 19:22] VITALS: BP 128/88; PULSE 86; TEMP 97.6
--- NOTE | 2021-03-26 19:45 | NUR ---
Assessment complete. Patient is awake and hollers out, wanting to "go back to his room at [facility]". Patiet is reoriented and comfort measures are provided. Patient has no complaints of pain. Llanos catheter still in place, HR normal/regular and lungs have expiratory wheezes throughout. He wears 2 liters 02 with no signs of increased WOB. No edema is noted. Patient takes medications whole with regular water; no signs of swallowing problems noted. Bed alarm set and call light in reach. Will continue to monitor.
[2021-03-27] VITALS: BP 133/84; PULSE 88; TEMP 97.8
[2021-03-27 07:35] LABS: BASO % 0.1 % (0.0-2.0); EOS # 0.3 (0.0-0.7); GRAN # 7.9 (1.4-6.5); GRAN % 70.7 % (42.2-75.2); HEMOGLOBIN 11.7 g/dl (13.5-18.0); LYMPH # 1.6 (1.2-3.4); LYMPH % 13.9 % (20.0-51.0); MEAN CELL VOLUME 108 fl (80.0-100.0); MEAN CORPUSCULAR HEMOGLOBIN 35 pg (27.0-31.0); MEAN CORPUSCULAR HGB CONC 33 g/dl (33.0-37.0); MEAN PLATELET VOLUME 9.5 fl (7.4-10.4); MONO # 1.3 (0.1-0.6); MONO % 11.5 % (1.7-9.3); PLATELET COUNT 359 K/mm3 (130-400); RED BLOOD COUNT 3.35 M/mm3 (4.20-5.60)
[2021-03-27 07:48] LABS: CREATININE, serum 1.61 (0.66-1.25); MAGNESIUM 2.7 mg/dL (1.6-2.3); POTASSIUM 4.6 mmol/L (3.4-5.0)
[2021-03-27 08:24] VITALS: BP 136/87; PULSE 86; TEMP 97.8
--- NOTE | 2021-03-27 11:39 | NUR ---
Assessment completed, alert/disoriented but cooperative and follows commands, vital signs stable, denies pain or discomfort, lungs are CTA/ diminished, no cough or sputum production, no resp.difficulty noted at rest, is planning on discharging back to [facility] nursing facility to[place], I have spoke with son on the phone and updated on plan of care
[2021-03-27 11:58] VITALS: BP 130/78; PULSE 52; TEMP 97.8
[2021-03-27 16:23] VITALS: BP 123/72; PULSE 107; TEMP 98
[2021-03-27 20:20] VITALS: BP 120/74; PULSE 86; TEMP 98.2
--- NOTE | 2021-03-27 21:00 | NUR ---
Patient assessed around 2019. Alert and oriented to self. Reorients easily to place, time, and situation, but very forgetful. Denies having pain and discomfort. Peripheral INT to left wrist. Denies SOB and dyspnea. LS CTA in upper lobes, diminished in lower. On room air at this time. Respirations even and unlabored. HRI. Telemetry in place. Capillary refill less than 3 seconds. Non-tenting skin turgor. BSAx4. Abdomen soft and non-tender. Indwelling mayfield catheter patent, and draining yellow urine with sediment present via dependent drainage. Redness to bottom, blanchable. Repositioned. Voices no questions, needs, or concerns at this time. Resting in bed with call light within reach. High fall risk precautions in place.
[2021-03-27 23:30] VITALS: BP 110/80; PULSE 55; TEMP 98.2
[2021-03-28 03:36] VITALS: BP 116/76; PULSE 62; TEMP 98.1
--- NOTE | 2021-03-28 05:45 | NUR ---
Patient has been resting in bed with call light within reach. Repositioned in bed. Continues to have confusion, easily redirected, but very forgetful. On room air. Covid swab obtained and taken to lab.
[2021-03-28 09:36] VITALS: BP 112/70; BP 116/66; PULSE 58; PULSE 62; TEMP 97.8
[2021-03-28] MEDS ORDERED: IPRATROPIUM BROM3 M1 IH (09:43)
[2021-03-28] MEDS ORDERED: MEDROL 4MG DOSPA4 MG PO (09:45)
--- NOTE | 2021-03-28 09:52 | NUR ---
9 AM Sylvia called [facility] to confirm d/c. Sylvia faxed over updates. 9:50 am Sylvia faxed over D/c order to [facility] + covid test. D/c on 03/28.
[2021-03-28] MEDS ORDERED: OMNICEF 300MG300 MG PO (13:18)
== END 2021-03-28 11:15 | DRG 871 ==
LOC: COL.ER 14:57 → MEDICAL 18:19
PROVIDERS: Family Medicine; Nurse Practitioner Family; ADMIT Internal Medicine
DX: A41.9 Sepsis, unspecified organism (principal); J18.9 Pneumonia, unspecified organism; J96.01 Acute respiratory failure with hypoxia; I50.23 Acute on chronic systolic (congestive) heart failure; J44.0 Chronic obstructive pulmonary disease with (acute) lower respiratory infection; J44.1 Chronic obstructive pulmonary disease with (acute) exacerbation; I31.3 Pericardial effusion (noninflammatory); I13.0 Hypertensive heart and chronic kidney disease with heart failure and stage 1 through stage 4 chronic kidney disease, or unspecified chronic kidney disease; E78.5 Hyperlipidemia, unspecified; I25.10 Atherosclerotic heart disease of native coronary artery without angina pectoris; I48.0 Paroxysmal atrial fibrillation; I49.5 Sick sinus syndrome; I27.20 Pulmonary hypertension, unspecified; R07.89 Other chest pain; E83.42 Hypomagnesemia; N18.30 Chronic kidney disease, stage 3 unspecified; F41.9 Anxiety disorder, unspecified; F32.9 Major depressive disorder, single episode, unspecified; R53.81 Other malaise; Z20.822 Contact with and (suspected) exposure to COVID-19; G20 Parkinson's disease; F02.80 Dementia in other diseases classified elsewhere, unspecified severity, without behavioral disturbance, psychotic disturbance, mood disturbance, and anxiety; K21.9 Gastro-esophageal reflux disease without esophagitis; Z95.0 Presence of cardiac pacemaker; Z86.14 Personal history of Methicillin resistant Staphylococcus aureus infection
CPT/HCPCS: 99223-AI; 99232-AI; 99233-AI; 99239; A4314; J0456; J0692; J0696; J1940; J2270; J2920; J2930; J3370; J3475; J7040; J7050; J7512; Q9967

== ENCOUNTER → 2022-01-12 | Outpatient (CLI) | payer MEDICARE, BC ==
[~2022-01-12] MED LIST changes: +AMOXICILLIN 8751 TAB PO; +IPRATROPIUM BROM3 M1 IH; +MEDROL 4MG DOSPA4 MG PO; +MYLANTA 150 ML150 M1 PO; +OMNICEF 300MG300 MG PO
== END ==
LOC: ZCOL.LAB 14:11
DX: R06.2 Wheezing (principal); Z20.822 Contact with and (suspected) exposure to COVID-19